=== PATIENT | male | born 1970 | race Caucasian/White ===

== ENCOUNTER 2023-04-16 06:57 | Day surgery (SDC) | payer OTHER ==
[2023-04-16] MEDS ORDERED: LIDOCAINE HCL 2% 100 MG/5 ML IJ ONE (06:58)
[2023-04-16] MEDS ORDERED: DIPRIVAN 200 MG/20 ML IV ONE (08:27)
[2023-04-16] MEDS ORDERED: Lactated Ringers 1,000 ML IV ONE (13:06)
--- NOTE | 2023-04-16 18:29 | XRAY ---
Indication: Bilateral L4-S1 MBB. Intraoperative fluoroscopy provided for 17 seconds. Single digital spot image submitted for interpretation demonstrates posterior needle tips projecting over the expected left and right L4-S1 nerve roots. Correlate with intraoperative findings/report.
--- NOTE | 2023-04-16 18:55 | XRAY ---
17 seconds of fluoroscopy was used in surgery for a bilateral L4-S1 MBB.
== END 2023-04-16 08:52 | disposition home or self-care (01) ==
LOC: SDC-PAIN 06:57
PROVIDERS: ATTEND Psychiatry & Neurology Pain Medicine
DX: M47.816 Spondylosis without myelopathy or radiculopathy, lumbar region (principal); Z79.899 Other long term (current) drug therapy
CPT/HCPCS: 64493; 64494; 72020; 77002; 82947; J2704

== ENCOUNTER 2023-05-14 08:48 | Day surgery (SDC) | payer OTHER ==
[2023-05-14] MEDS ORDERED: BUPIVACAINE 0.5% VIAL IJ ONE (08:49)
[2023-05-14] MEDS ORDERED: DIPRIVAN 200 MG/20 ML IV ONE (11:17)
[2023-05-14] MEDS ORDERED: Xylocaine-Mpf 2% 5 Ml Vial ONE (11:18)
[2023-05-14] MEDS ORDERED: Lactated Ringers 1,000 ML IV ONE (13:09)
--- NOTE | 2023-05-14 14:34 | XRAY ---
Indication: Bilateral L4-S1 MBB. Intraoperative fluoroscopy provided for 16 seconds. 2 digital spot image submitted for interpretation demonstrates posterior needle tips projecting over the expected left and right L4-S1 nerve roots. Correlate with intraoperative findings/report.
--- NOTE | 2023-05-14 14:34 | XRAY ---
16 seconds of fluoroscopy was used in surgery for a bilateral L4-S1 MBB.
== END 2023-05-14 11:45 | disposition home or self-care (01) ==
LOC: SDC-PAIN 08:48
PROVIDERS: ATTEND Psychiatry & Neurology Pain Medicine
DX: M47.816 Spondylosis without myelopathy or radiculopathy, lumbar region (principal); E11.9 Type 2 diabetes mellitus without complications; Z79.899 Other long term (current) drug therapy
CPT/HCPCS: 64493; 64494; 72020; 77002; 82947; J2704

== ENCOUNTER 2023-06-18 07:18 | Day surgery (SDC) | payer OTHER ==
[2023-06-18] MEDS ORDERED: BUPIVACAINE 0.5% VIAL IJ ONE (07:19)
[2023-06-18] MEDS ORDERED: LIDOCAINE HCL 1% 50 MG/5 ML VL PF IJ ONE (07:19)
[2023-06-18] MEDS ORDERED: Depo-Medrol 40 MG/ML IM ONE (07:19)
[2023-06-18] MEDS ORDERED: DIPRIVAN 200 MG/20 ML IV ONE ×2 (08:55→09:04)
[2023-06-18] MEDS ORDERED: Versed 2 MG/2 ML Injection ONE (08:56)
[2023-06-18] MEDS ORDERED: SUBLIMAZE 100 MCG/2 ML ONE (09:06)
[2023-06-18] MEDS ORDERED: Lactated Ringers 1,000 ML IV ONE (09:13)
--- NOTE | 2023-06-18 09:57 | XRAY ---
Indication: Left L4-S1 RFA. Intraoperative fluoroscopy was provided for 30 seconds. 3 digital spot images submitted for interpretation demonstrates posterior needle tips projecting over expected left L4-S1 nerve roots. Correlate with intraoperative findings/report.
--- NOTE | 2023-06-18 09:59 | XRAY ---
30 seconds of fluoroscopy was used in surgery for a left L4-S1 RFA.
== END 2023-06-18 09:30 | disposition home or self-care (01) ==
LOC: SDC-PAIN 07:18
PROVIDERS: ATTEND Psychiatry & Neurology Pain Medicine
DX: M47.816 Spondylosis without myelopathy or radiculopathy, lumbar region (principal)
CPT/HCPCS: 64635; 64636; 72100; 77002; 82947; J1030; J2001; J2250; J2704; J3010

== ENCOUNTER 2024-04-28 07:12 | Day surgery (SDC) | payer BC, OTHER ==
[2024-04-28] MEDS ORDERED: BUPIVACAINE 0.5% VIAL IJ ONE (07:13)
[2024-04-28] MEDS ORDERED: Depo-Medrol 40 MG/ML IM ONE (07:13)
[2024-04-28] MEDS ORDERED: DIPRIVAN 200 MG/20 ML IV ONE (09:07)
[2024-04-28] MEDS ORDERED: Lactated Ringers 1,000 ML IV ONE (10:52)
--- NOTE | 2024-04-28 11:01 | XRAY ---
Indication: Bilateral SI joint injection. Intraoperative fluoroscopy provided for 26 seconds. 3 digital spot image submitted for interpretation demonstrates posterior needle tips projecting over the expected left and right SI joint. Small amount of contrast injected for needle tip placement. Correlate with intraoperative findings/report.
--- NOTE | 2024-04-28 11:45 | XRAY ---
26 seconds of fluoroscopy was used in surgery for a bilateral sacroiliac joint injection.
== END 2024-04-28 09:13 ==
LOC: SDC-PAIN 07:12
PROVIDERS: ATTEND Psychiatry & Neurology Pain Medicine
DX: M46.1 Sacroiliitis, not elsewhere classified (principal); E11.9 Type 2 diabetes mellitus without complications
CPT/HCPCS: 27096; 72202; 77002; 82947; J2704; Q9966; G0260

== ENCOUNTER 2025-05-04 08:06 | Day surgery (SDC) | payer BC ==
[2025-05-04] MEDS ORDERED: Marcaine Mpf 0.5% Vial 30 Ml IJ ONE (08:07)
[2025-05-04] MEDS ORDERED: propofoL IV ONE (09:50)
[2025-05-04] MEDS ORDERED: Lactated Ringers 1,000 ML IV ONE (10:08)
--- NOTE | 2025-05-04 11:31 | XRAY ---
Indication: Bilateral L4-S1 MBB. Intraoperative fluoroscopy provided for 10 seconds. Single digital spot image submitted for interpretation demonstrates posterior needle tips projecting over expected left and right L4-S1 nerve roots. Correlate with intraoperative findings/report.
--- NOTE | 2025-05-04 11:47 | XRAY ---
10 seconds of fluoroscopy was used in surgery for a bilateral L4-S1 MBB.
== END 2025-05-04 10:25 | disposition home or self-care (01) ==
LOC: SDC-PAIN 08:06
PROVIDERS: ATTEND Psychiatry & Neurology Pain Medicine
DX: M47.817 Spondylosis without myelopathy or radiculopathy, lumbosacral region (principal); E11.9 Type 2 diabetes mellitus without complications

== ENCOUNTER 2025-06-15 06:42 | Day surgery (SDC) | payer BC ==
[2025-06-15] MEDS ORDERED: BUPIVACAINE 0.5% VIAL IJ ONE (06:43)
[2025-06-15] MEDS ORDERED: LIDOCAINE HCL 1% 50 MG/5 ML VL IJ ONE (06:43)
[2025-06-15] MEDS ORDERED: methylPREDNISolone acetate IM ONE (06:43)
[2025-06-15] MEDS ORDERED: propofoL IV ONE (07:55)
[2025-06-15] MEDS ORDERED: Xylocaine-Mpf 2% 5 Ml Vial ONE (07:59)
[2025-06-15] MEDS ORDERED: DEXMEDETOMIDINE 80 MCG/20ML-NS IV ONE (08:12)
[2025-06-15] MEDS ORDERED: Lactated Ringers 1,000 ML IV ONE (10:38)
--- NOTE | 2025-06-15 11:47 | XRAY ---
Indication: Left L4-S1 RFA. Intraoperative fluoroscopy provided for 18 seconds. 3 digital spot image submitted for interpretation demonstrates posterior needle tips projecting over expected left L4-S1 nerve roots. Correlate with intraoperative findings/report.
--- NOTE | 2025-06-15 12:15 | XRAY ---
18 seconds of fluoroscopy was used in surgery for a left L4-S1 RFA.
== END 2025-06-15 08:30 | disposition home or self-care (01) ==
LOC: SDC-PAIN 06:42
PROVIDERS: ATTEND Psychiatry & Neurology Pain Medicine
DX: M47.817 Spondylosis without myelopathy or radiculopathy, lumbosacral region (principal); E11.9 Type 2 diabetes mellitus without complications